=== PATIENT | female | born 1940 | race Caucasian/White ===

== ENCOUNTER 2022-02-05 12:14 | Inpatient (IN) ==
[2022-02-05] MEDS ORDERED: ALBUTEROL NEB SOLN 5 MG/ML 20 ML/BOTTLE CONT NEB STA (12:35)
[2022-02-05] MEDS ORDERED: methylPREDNISolone SOD SUC 125 MG/2 ML VIAL IV STA (12:35)
[2022-02-05 14:06] LABS: Basophils % 0.1 % (0.0-0.8); Hematocrit 37.2 VOL% (35.7-47.0); Hemoglobin 11.6 GM/DL (12.0-16.0); Immature Granulocytes % 0.4 %; Immature Granulocytes Absolute 0.05 #; Lymphocytes # 1.3 10*3/uL (1.4-4.0); Lymphocytes % 10.3 % (21.3-54.2); Mean Corpuscular HGB Conc 31.2 GM/DL (32-36); Mean Corpuscular Volume 89.4 FL (87-102); Mean Platelet Volume 10.7 FL (9.6-12.0); Monocytes # 0.2 10*3/uL (0.11-0.8); Monocytes % 1.6 % (1.7-12.7); Neutrophils % 87.6 % (38.7-73.9); Platelet Count 291 T/CUMM (130-400); Red Blood Count 4.16 MC/CUMM (3.8-5.5); Red Cell Distribution Width 15.1 % (9.3-17.3); White Blood Count 12.6 T/CUMM (4-12)
[2022-02-05 14:30] LABS: Albumin 3.7 G/DL (3.4-5.0); Bilirubin,Total 0.6 MG/DL (0.20-1.00); Calcium 9.9 MG/DL (8.5-10.1); Osmolality,Calculated 277.8 MOS/KG (273-304); Potassium 4.2 MMOL/L (3.5-5.1); Total Protein 7.1 G/DL (6.4-8.2)
[2022-02-05] MEDS ORDERED: FUROSEMIDE 40 MG/4 ML VIAL IV ONE (14:35)
[2022-02-05] MEDS ORDERED: DOCUSATE SODIUM 100 MG CAPSULE PO PRN (14:37)
[2022-02-05] MEDS ORDERED: GLUCAGON 1 MG VIAL IM PRN (14:37)
[2022-02-05] MEDS ORDERED: ONDANSETRON 4 MG/2 ML VIAL IV PRN (14:37)
[2022-02-05] MEDS ORDERED: ACETAMINOPHEN 325 MG TABLET PO PRN (14:37)
[2022-02-05] MEDS ORDERED: SIMETHICONE CHEW 125 MG TABLET PO PRN (14:37)
[2022-02-05] MEDS ORDERED: LACTULOSE 20 GM/30 ML UDCUP PO PRN (14:37)
[2022-02-05] MEDS ORDERED: DEXTROSE 10% 250 ML BAG IV PRN (14:50)
[2022-02-05 15:19] LABS: Thyroid Stimulating Hormone 0.63 uIU/ml (0.358-3.74)
[2022-02-05] MEDS ORDERED: LEVOFLOXACIN INJ 500 MG/100 ML PREMIX IV SCH (16:00)
[2022-02-05] MEDS: ENOXAPARIN 40 MG/0.4 ML SYRINGE SUBCUT SCH (16:18)
[2022-02-05] MEDS: ALBUTEROL/IPRATROPIUM 3 ML NEB RESP TX SCH (19:55)
[2022-02-05] MEDS: methylPREDNISolone SOD SUC 40 MG/1 ML VIAL IV SCH (20:14)
[2022-02-05] MEDS: FLUTICASONE/SALMETEROL 500-50 DISKUS 14 DOSE INH SCH (21:00)
[2022-02-06] MEDS: ALBUTEROL/IPRATROPIUM 3 ML NEB RESP TX SCH ×4 (00:30→19:06)
[2022-02-06] MEDS: methylPREDNISolone SOD SUC 40 MG/1 ML VIAL IV SCH ×3 (04:45→20:58)
[2022-02-06 04:50] LABS: Hematocrit 29.1 VOL% (35.7-47.0); Hemoglobin 9.2 GM/DL (12.0-16.0); Immature Granulocytes % 0.4 %; Immature Granulocytes Absolute 0.02 #; Lymphocytes # 0.5 10*3/uL (1.4-4.0); Lymphocytes % 9.6 % (21.3-54.2); Mean Corpuscular HGB Conc 31.6 GM/DL (32-36); Mean Corpuscular Volume 88.2 FL (87-102); Mean Platelet Volume 10.9 FL (9.6-12.0); Monocytes # 0.2 10*3/uL (0.11-0.8); Monocytes % 3.3 % (1.7-12.7); Neutrophils % 86.7 % (38.7-73.9); Platelet Count 201 T/CUMM (130-400); Red Cell Distribution Width 15.2 % (9.3-17.3); White Blood Count 5.2 T/CUMM (4-12)
[2022-02-06 05:22] LABS: Albumin 2.8 G/DL (3.4-5.0); Bilirubin,Total 0.5 MG/DL (0.20-1.00); Osmolality,Calculated 278.8 MOS/KG (273-304); Risk Ratio 1.9; Total Protein 5.8 G/DL (6.4-8.2); VLDL Cholesterol 8.2 MG/DL
[2022-02-06] MEDS: FUROSEMIDE 40 MG/4 ML VIAL IV SCH (09:01)
[2022-02-06] MEDS: ASPIRIN CHEW 81 MG TABLET PO SCH (10:07)
[2022-02-06] MEDS: FLUoxetine 10 MG CAPSULE PO SCH (10:07)
[2022-02-06] MEDS: LEVOTHYROXINE 75 MCG TABLET PO SCH (10:15)
[2022-02-06] MEDS: PANTOPRAZOLE 40 MG TABLET PO SCH (10:15)
[2022-02-06] MEDS: FLUTICASONE/SALMETEROL 500-50 DISKUS 14 DOSE INH SCH ×2 (10:33→12:02)
[2022-02-06] MEDS: ASCORBIC ACID 500 MG TABLET PO SCH ×2 (10:34→20:58)
[2022-02-06] MEDS ORDERED: AZITHROMYCIN INJ 500 MG in SODIUM CHLORIDE 0.9% 250 ML IV SCH (11:00)
[2022-02-06] MEDS: cefTRIAXone 1,000 MG in SODIUM CHLORIDE 0.9% 100 ML IV SCH (11:27)
[2022-02-06] MEDS: AZITHROMYCIN INJ 500 MG in SODIUM CHLORIDE 0.9% 250 ML IV SCH (11:59)
[2022-02-06] MEDS: SPIRONOLACTONE 25 MG TABLET PO SCH (14:10)
[2022-02-06] MEDS: MAGNESIUM OXIDE 400 MG TABLET PO SCH ×2 (14:11→20:58)
[2022-02-06] MEDS: ENOXAPARIN 40 MG/0.4 ML SYRINGE SUBCUT SCH (16:12)
[2022-02-06] MEDS: BUDESONIDE 0.5 MG/2 ML NEB RESP TX SCH (19:06)
[2022-02-07] MEDS: ALBUTEROL/IPRATROPIUM 3 ML NEB RESP TX SCH ×4 (00:43→19:08)
[2022-02-07] MEDS: methylPREDNISolone SOD SUC 40 MG/1 ML VIAL IV SCH ×3 (03:53→20:47)
[2022-02-07 05:02] LABS: Hematocrit 30.4 VOL% (35.7-47.0); Hemoglobin 9.5 GM/DL (12.0-16.0); Immature Granulocytes % 0.4 %; Immature Granulocytes Absolute 0.03 #; Lymphocytes # 0.6 10*3/uL (1.4-4.0); Lymphocytes % 8.2 % (21.3-54.2); Mean Corpuscular HGB Conc 31.3 GM/DL (32-36); Mean Corpuscular Volume 88.4 FL (87-102); Mean Platelet Volume 10.7 FL (9.6-12.0); Monocytes # 0.4 10*3/uL (0.11-0.8); Monocytes % 4.7 % (1.7-12.7); Neutrophils % 86.7 % (38.7-73.9); Platelet Count 210 T/CUMM (130-400); Red Blood Count 3.44 MC/CUMM (3.8-5.5); White Blood Count 7.7 T/CUMM (4-12)
[2022-02-07 05:17] LABS: Calcium 8.4 MG/DL (8.5-10.1); Osmolality,Calculated 281.7 MOS/KG (273-304); Potassium 4.1 MMOL/L (3.5-5.1)
[2022-02-07] MEDS: LEVOTHYROXINE 75 MCG TABLET PO SCH (05:53)
[2022-02-07] MEDS: PANTOPRAZOLE 40 MG TABLET PO SCH (05:53)
[2022-02-07] MEDS: BUDESONIDE 0.5 MG/2 ML NEB RESP TX SCH ×2 (07:45→19:08)
[2022-02-07] MEDS: FUROSEMIDE 40 MG/4 ML VIAL IV SCH (09:37)
[2022-02-07] MEDS: FLUoxetine 10 MG CAPSULE PO SCH (10:03)
[2022-02-07] MEDS: ASCORBIC ACID 500 MG TABLET PO SCH ×2 (10:03→20:47)
[2022-02-07] MEDS: MAGNESIUM OXIDE 400 MG TABLET PO SCH ×2 (10:04→20:47)
[2022-02-07] MEDS: SPIRONOLACTONE 25 MG TABLET PO SCH (10:04)
[2022-02-07] MEDS: ASPIRIN CHEW 81 MG TABLET PO SCH (10:04)
[2022-02-07] MEDS: cefTRIAXone 1,000 MG in SODIUM CHLORIDE 0.9% 100 ML IV SCH (11:24)
[2022-02-07] MEDS: AZITHROMYCIN INJ 500 MG in SODIUM CHLORIDE 0.9% 250 ML IV SCH (12:45)
[2022-02-07] MEDS: ENOXAPARIN 40 MG/0.4 ML SYRINGE SUBCUT SCH (17:10)
[2022-02-08] MEDS: ALBUTEROL/IPRATROPIUM 3 ML NEB RESP TX SCH ×3 (00:02→13:16)
[2022-02-08] MEDS: methylPREDNISolone SOD SUC 40 MG/1 ML VIAL IV SCH ×2 (04:13→10:59)
[2022-02-08 05:37] LABS: Basophils % 0.1 % (0.0-0.8); Hematocrit 30.5 VOL% (35.7-47.0); Hemoglobin 9.5 GM/DL (12.0-16.0); Immature Granulocytes % 0.5 %; Immature Granulocytes Absolute 0.04 #; Lymphocytes # 0.7 10*3/uL (1.4-4.0); Lymphocytes % 9.3 % (21.3-54.2); Mean Corpuscular HGB Conc 31.1 GM/DL (32-36); Mean Corpuscular Volume 89.7 FL (87-102); Mean Platelet Volume 11.1 FL (9.6-12.0); Monocytes # 0.4 10*3/uL (0.11-0.8); Monocytes % 5.7 % (1.7-12.7); Neutrophils % 84.4 % (38.7-73.9); Platelet Count 219 T/CUMM (130-400); Red Cell Distribution Width 15.2 % (9.3-17.3); White Blood Count 7.8 T/CUMM (4-12)
[2022-02-08 05:54] LABS: Calcium 8.2 MG/DL (8.5-10.1); Osmolality,Calculated 283.5 MOS/KG (273-304)
[2022-02-08] MEDS: LEVOTHYROXINE 75 MCG TABLET PO SCH (06:18)
[2022-02-08] MEDS: PANTOPRAZOLE 40 MG TABLET PO SCH (06:18)
[2022-02-08] MEDS: BUDESONIDE 0.5 MG/2 ML NEB RESP TX SCH (07:00)
[2022-02-08] MEDS: FUROSEMIDE 40 MG/4 ML VIAL IV SCH (09:25)
[2022-02-08] MEDS: SPIRONOLACTONE 25 MG TABLET PO SCH (09:53)
[2022-02-08] MEDS: MAGNESIUM OXIDE 400 MG TABLET PO SCH (09:53)
[2022-02-08] MEDS: FLUoxetine 10 MG CAPSULE PO SCH (09:53)
[2022-02-08] MEDS: ASPIRIN CHEW 81 MG TABLET PO SCH (09:53)
[2022-02-08] MEDS: ASCORBIC ACID 500 MG TABLET PO SCH (09:53)
[2022-02-08] MEDS: cefTRIAXone 1,000 MG in SODIUM CHLORIDE 0.9% 100 ML IV SCH (10:00)
[2022-02-08] MEDS ORDERED: predniSONE 20 MG TABLET PO SCH (11:26)
[2022-02-08] MEDS: AZITHROMYCIN INJ 500 MG in SODIUM CHLORIDE 0.9% 250 ML IV SCH (11:31)
[2022-02-08 13:05] VITALS: BP 119/74
== END 2022-02-08 14:40 | disposition home or self-care (01) | DRG 291 ==
LOC: EDUNIT# → EDBD → N.ED 12:14 → SUATTDRO 14:37 → N.EDINP 14:37 → N.TELEN 17:23
PROVIDERS: ADMIT Internal Medicine; ATTEND Internal Medicine

== ENCOUNTER 2022-09-18 18:06 | Observation (INO) ==
[2022-09-19] MEDS ORDERED: MORPHINE 2 MG/1 ML SYRINGE IV PRN (02:05)
[2022-09-19] MEDS ORDERED: ONDANSETRON 4 MG/2 ML VIAL IV PRN (02:05)
[2022-09-19] MEDS ORDERED: ACETAMINOPHEN 325 MG TABLET PO PRN (02:05)
[2022-09-19] MEDS ORDERED: ALBUTEROL/IPRATROPIUM 3 ML NEB RESP TX PRN (02:05)
[2022-09-19] MEDS ORDERED: GLUCAGON 1 MG VIAL IM PRN (02:05)
[2022-09-19] MEDS ORDERED: hydrALAZINE 20 MG/1 ML VIAL IV PRN (02:05)
[2022-09-19] MEDS ORDERED: BENRALIZUMAB 30 MG/ML SYRINGE SUBCUT SCH (02:30)
[2022-09-19] MEDS ORDERED: DEXTROSE 10% 250 ML BAG IV PRN (02:47)
[2022-09-19] MEDS: SODIUM CHLORIDE 0.9% 1,000 ML IV SCH ×2 (03:24→16:44)
[2022-09-19 05:15] LABS: Basophils % 0.1 % (0.0-0.8); Hematocrit 32.7 VOL% (35.7-47.0); Hemoglobin 10.9 GM/DL (12.0-16.0); Immature Granulocytes % 1.4 %; Lymphocytes # 0.9 10*3/uL (1.4-4.0); Lymphocytes % 4.2 % (21.3-54.2); Mean Corpuscular HGB Conc 33.3 GM/DL (32-36); Mean Corpuscular Volume 92.1 FL (87-102); Mean Platelet Volume 10.3 FL (9.6-12.0); Monocytes # 0.3 10*3/uL (0.11-0.8); Monocytes % 1.5 % (1.7-12.7); Neutrophils % 92.8 % (38.7-73.9); Platelet Count 213 T/CUMM (130-400); Red Blood Count 3.55 MC/CUMM (3.8-5.5); Red Cell Distribution Width 13.4 % (9.3-17.3)
[2022-09-19 05:37] LABS: Anisocytosis 2+; Band Neutrophils 17 % (0-10); Burr Cells Few; Lymphocytes 3 % (20-55); Platelet Estimate Normal; Total Cells Counted 100
[2022-09-19 05:41] LABS: Bilirubin,Total 0.6 MG/DL (0.20-1.00); Calcium 9.3 MG/DL (8.5-10.1); Osmolality,Calculated 270.7 MOS/KG (273-304); Risk Ratio 1.7; Thyroid Stimulating Hormone 0.303 uIU/ml (0.358-3.74); Total Protein 6.6 G/DL (6.4-8.2); VLDL Cholesterol 5.6 MG/DL
[2022-09-19] MEDS: LEVOTHYROXINE 75 MCG TABLET PO SCH (06:01)
[2022-09-19] MEDS: ASPIRIN CHEW 81 MG TABLET PO SCH (08:53)
[2022-09-19] MEDS: METOPROLOL SUCCINATE XL 25 MG TABLET PO SCH (08:53)
[2022-09-19] MEDS: CALCIUM (CARBONATE)/VITAMIN D 600 MG-400 UNIT TABLET PO SCH ×2 (08:53→21:09)
[2022-09-19] MEDS: ASCORBIC ACID 500 MG TABLET PO SCH ×2 (08:53→21:09)
[2022-09-19] MEDS: SPIRONOLACTONE 25 MG TABLET PO SCH (08:53)
[2022-09-19] MEDS: PANTOPRAZOLE 40 MG TABLET PO SCH (08:53)
[2022-09-19] MEDS: OMEGA 3 ACID ETHYL ESTERS 1 GM CAPSULE PO SCH (08:53)
[2022-09-19] MEDS: FLUoxetine 10 MG CAPSULE PO SCH (08:53)
[2022-09-19] MEDS: INSULIN LISPRO 100 UNIT/ML SUBCUT SCH ×4 (09:55→20:43)
[2022-09-19] MEDS ORDERED: ENOXAPARIN 30 MG/0.3 ML SYRINGE SUBCUT SCH (21:00)
[2022-09-20 04:33] LABS: Basophils % 0.1 % (0.0-0.8); Hematocrit 32.8 VOL% (35.7-47.0); Hemoglobin 10.6 GM/DL (12.0-16.0); Immature Granulocytes % 0.6 %; Immature Granulocytes Absolute 0.09 #; Lymphocytes # 1.4 10*3/uL (1.4-4.0); Lymphocytes % 8.6 % (21.3-54.2); Mean Corpuscular HGB Conc 32.3 GM/DL (32-36); Mean Corpuscular Volume 93.2 FL (87-102); Mean Platelet Volume 10.3 FL (9.6-12.0); Monocytes # 0.8 10*3/uL (0.11-0.8); Monocytes % 5.2 % (1.7-12.7); Neutrophils % 85.5 % (38.7-73.9); Platelet Count 234 T/CUMM (130-400); Red Blood Count 3.52 MC/CUMM (3.8-5.5); Red Cell Distribution Width 13.7 % (9.3-17.3); White Blood Count 16.1 T/CUMM (4-12)
[2022-09-20 04:45] LABS: Calcium 9.3 MG/DL (8.5-10.1); Osmolality,Calculated 278.5 MOS/KG (273-304); Potassium 4.1 MMOL/L (3.5-5.1)
[2022-09-20] MEDS: LEVOTHYROXINE 75 MCG TABLET PO SCH (05:47)
[2022-09-20] MEDS: CALCIUM (CARBONATE)/VITAMIN D 600 MG-400 UNIT TABLET PO SCH (08:31)
[2022-09-20] MEDS: FLUoxetine 10 MG CAPSULE PO SCH (08:31)
[2022-09-20] MEDS: ASCORBIC ACID 500 MG TABLET PO SCH (08:31)
[2022-09-20] MEDS: ASPIRIN CHEW 81 MG TABLET PO SCH (08:32)
[2022-09-20] MEDS: PANTOPRAZOLE 40 MG TABLET PO SCH (08:32)
[2022-09-20] MEDS: METOPROLOL SUCCINATE XL 25 MG TABLET PO SCH (08:32)
[2022-09-20] MEDS: SPIRONOLACTONE 25 MG TABLET PO SCH (08:32)
[2022-09-20] MEDS: OMEGA 3 ACID ETHYL ESTERS 1 GM CAPSULE PO SCH (08:32)
[2022-09-20] MEDS: INSULIN LISPRO 100 UNIT/ML SUBCUT SCH ×2 (11:31→11:47)
[2022-09-20 11:39] VITALS: BP 118/64
[2022-09-20] MEDS ORDERED: LEVOFLOXACIN 250 MG TABLET PO SCH (13:00)
== END 2022-09-20 14:20 | disposition home or self-care (01) ==
LOC: N.3E → SUATTDRO 23:20
PROVIDERS: ADMIT Internal Medicine; ATTEND Hospitalist